=== PATIENT | male | born 1985 | race American Indian/Alaskan Native ===

== ENCOUNTER 2018-12-14 00:55 | Inpatient (IN) | payer OTHER ==
[2018-12-14] MEDS ORDERED: NORMODYNE IV ONE (01:30)
--- NOTE | 2018-12-14 01:30 | Cat Scan Report ---
PROCEDURE: CT HEAD/BRAIN WO CON TECHNIQUE: Computerized tomography of the head was performed without contrast material. CT DOSE LENGTH PRODUCT: 920.5 mGycm HISTORY: Neuro deficits <6hrs or sx present upon awakening. COMPARISONS: None . FINDINGS: Skull and scalp: Normal . Paranasal sinuses: Normal . Ventricles and subarachnoid spaces: Normal . Cerebrum: No evidence of hemorrhage, large vessel territory acute infarction or mass . Cerebellum and brainstem: No evidence of hemorrhage, acute infarction or mass . Vasculature: Unremarkable. Other: None . IMPRESSION: No acute intracranial process identified. Specifically there is no acute intracranial hemorrhage or d efinitive early findings of ischemia. COMMENT: Consider MRI for further evaluation given reported neurological deficits. This document is electronically signed by Julio C Faustin DO., Dec 14 2018 01:28:04 AM ET
[2018-12-14] MEDS ORDERED: ACTIVASE ONE (01:32)
--- NOTE | 2018-12-14 01:37 | Emergency Department Report ---
HPI - General Chief Complaint: Neuro Symptoms/Deficit Time Seen by Provider: 12/14/18 01:31 - HPI HPI: Room 2 The patient is a 31-year-old male presenting with a chief complaint of chest pain. The patient states approximately one hour prior to arrival he developed some sore chest pain radiating to his right upper extremity. The patient states his friend who is an EMT checked his blood pressure and noticed it was high and recommended he come to the ED. Patient describes the chest pain as a "pain" and states that is intermittent. The patient states that his shortness of breath and diaphoresis associated with chest pain. Patient denies nausea or vomiting. The patient was noted to have a right-sided facial droop in the ED as well as some difficulty raising his left lower extremity. The patient states he did not recognize this until he was in the emergency department Location: [See above] Duration: [See above] Quality: [See above] Severity: 12/29 Modifying factors: [see above] Context: [see above] Mode of transportation: [not driving] ED Past Medical Hx - Past Medical History Hx Headaches / Migraines: Yes Additional medical history: hypercholesterolemia - Surgical History Past Surgical History?: No - Family History Family history: no significant - Social History Smoking Status: Current Every Day Smoker (cigars) Substance Use Type: None (denies illicit drug use), Alcohol (occasional) - Medications Home Medications: Home Medications Medication Instructions Recorded Confirmed Last Taken Type Acetaminophen/Codeine 1 tab PO Q6H PRN #15 tab 04/30/14 05/04/14 05/02/14 Rx [Acetaminophen-Codeine #3 TAB] Sulfamethoxazole/Trimethoprim 1 each PO BID #14 tablet 04/30/14 05/04/14 05/04/14 Rx [Bactrim Ds] ED Review of Systems ROS: Stated complaint: CHEST PAIN Other details as noted in HPI Constitutional: diaphoresis Eyes: denies: eye pain ENT: denies: throat pain Respiratory: shortness of breath Cardiovascular: chest pain Endocrine: no symptoms reported Gastrointestinal: denies: abdominal pain, nausea, vomiting Genitourinary: denies: dysuria Musculoskeletal: denies: back pain Neurological: headache, weakness Physical Exam - Physical Exam Vital Signs: Vital Signs 12/14/18 01:04 Temperature 98.4 F Pulse Rate 94 H Respiratory 18 Rate Blood Pressure 159/108 O2 Sat by Pulse 100 Oximetry Physical Exam: GENERAL: The patient is well-developed well-nourished male lying on stretcher appearing to be in mild discomfort. [] HEENT: Normocephalic. Atraumatic. Extraocular motions are intact. Patient has moist mucous membranes. NECK: Supple. No meningitic signs are noted. Trachea midline CHEST/LUNGS: Clear to auscultation. There is no respiratory distress noted. HEART/CARDIOVASCULAR: Regular. There is no tachycardia. There is no gallop rub or murmur. ABDOMEN: Abdomen is soft, nontender. Patient has normal bowel sounds. There is no abdominal distention. SKIN: There is no rash. There is no edema. There is no diaphoresis. NEURO: The patient is awake, alert, and oriented. The patient is cooperative. The patient has no focal neurologic deficits. The patient has normal speech. Cranial nerves II through XII grossly intact, no drift MUSCULOSKELETAL: There is no evidence of acute injury. ED Course Vital Signs 12/14/18 01:04 Temperature 98.4 F Pulse Rate 94 H Respiratory 18 Rate Blood Pressure 159/108 O2 Sat by Pulse 100 Oximetry ED Medical Decision Making - Lab Data Result diagrams: 12/14/18 01:24 12/14/18 01:24 Laboratory Tests 12/14/18 12/14/18 12/14/18 01:13 01:24 01:24 WBC 5.2 RBC 5.57 H Hgb 17.1 H Hct 50.4 H MCV 90 MCH 31 MCHC 34 RDW 13.8 Plt Count 149 Lymph % (Auto) 32.1 [place] % (Auto) 11.1 H Eos % (Auto) 1.1 Baso % (Auto) 0.5 Lymph # 1.7 [place]ley # 0.6 Eos # 0.1 Baso # 0.0 Seg Neutrophils % 55.2 Seg Neutrophils # 2.9 PT 13.5 INR 0.97 APTT 26.1 Thrombin Time 15.2 Sodium Potassium Chloride Carbon Dioxide Anion Gap BUN Creatinine Estimated GFR BUN/Creatinine Ratio Glucose POC Glucose 87 Calcium Troponin T 12/14/18 01:24 WBC RBC Hgb Hct MCV MCH MCHC RDW Plt Count Lymph % (Auto) [place] % (Auto) Eos % (Auto) Baso % (Auto) Lymph # [place] # Eos # Baso # Seg Neutrophils % Seg Neutrophils # PT INR APTT Thrombin Time Sodium 138 Potassium 3.7 Chloride 100.1 Carbon Dioxide 24 Anion Gap 18 BUN 9 Creatinine 1.1 Estimated GFR > 60 BUN/Creatinine Ratio 8 Glucose 102 H POC Glucose Calcium 9.4 Troponin T < 0.010 - EKG Data -: EKG Interpreted by Me EKG shows normal: sinus rhythm Rate: normal - EKG Data When compared to previous EKG there are: previous EKG unavailable Interpretation: nonspecific ST-T wave gavino (T-wave inversion in lead 3) - Radiology Data Radiology results: report reviewed (CT head, CT chest, CT abdomen and pelvis), image reviewed (CT head, CT chest, CT abdomen and pelvis) [facility] [address] [place] [address] Cat Scan Report Signed with Addenda Patient: MICHELLE CHAHAL MR#: [id number] : 1985 Acct:[id number] Age/Sex: 33 / M ADM Date: 12/14/18 Loc: ED Attending Dr: Ordering Physician: PADMAJA ZAMBRANO MD Date of Service: 12/14/18 Procedure(s): CT head/brain wo con Accession Number(s): [id number] cc: PADMAJA ZAMBRANO MD ADDENDUM ADDENDUM: Impression relayed to Dr. Zambrano at 0130 hours on 12/14/2018. This document is electronically signed by Lori Faustin DO., Dec 14 2018 01:36:25 AM ET Addendum Transcribed By: DAGMAR Addendum Dictated By: LORI FAUSTIN DO Addendum Electronically Authenticated By: LORI FAUSTIN DO Addendum Signed Date/Time: 12/14/18137 DD/ TD/TT: 12/14/18 PROCEDURE: CT HEAD/BRAIN WO CON TECHNIQUE: Computerized tomography of the head was performed without contrast material. CT DOSE LENGTH PRODUCT: 920.5 mGycm HISTORY: Neuro deficits <6hrs or sx present upon awakening. COMPARISONS: None . FINDINGS: Skull and scalp: Normal . Paranasal sinuses: Normal . Ventricles and subarachnoid spaces: Normal . Cerebrum: No evidence of hemorrhage, large vessel territory acute infarction or mass . Cerebellum and brainstem: No evidence of hemorrhage, acute infarction or mass . Vasculature: Unremarkable. Other: None . IMPRESSION: No acute intracranial process identified. Specifically there is no acute intracranial hemorrhage or definitive early findings of ischemia. COMMENT: Consider MRI for further evaluation given reported neurological deficits. This document is electronically signed by Lori Faustin DO., Dec 14 2018 01:28:04 AM ET Transcribed By: DT Dictated By: LORI FAUSTIN DO Electronically Authenticated By: LORI FAUSTIN DO Signed Date/Time: 12/14/180 DD/ 7 TD/TT: 12/14/[address] [place] [address] Cat Scan Report Signed Patient: MICHELLE CHAHAL MR#: [id number] : 1985 Acct:[id number] Age/Sex: 33 / M ADM Date: 12/14/18 Loc: ED Attending Dr: Ordering Physician: PADMAJA ZAMBRANO MD Date of Service: 12/14/18 Procedure(s): CT angio chest Accession Number(s): [id number] cc: PADMAJA ZAMBRANO MD PROCEDURE: CT ANGIO CHEST TECHNIQUE: Computerized tomographic angiography of the chest was performed after the IV injection of iodinated nonionic contrast including image processing. The image data was postprocessed using 2-dimensional multiplanar reformatted (MPR) and 3-dimensional (MIP and/or volume rendered) techniques. Automated exposure control, adjustment of mA and/or kV according to patient size, or iterative reconstruction dose optimization techniques were utilized. CT DOSE LENGTH PRODUCT: mGycm HISTORY: chest pain, left lower extremity weakness COMPARISONS: None . FINDINGS: Heart and pericardium: Normal. Thoracic aorta: Normal. Pulmonary vasculature: Normal. Lymph nodes: No enlarged thoracic lymph nodes. Lungs: Normal. Pleural space: No effusion, thickening, or pneumothorax. Musculoskeletal structures: No significant abnormality. Upper abdominal structures: No significant abnormality. IMPRESSION: Normal Examination . No evidence of pulmonary embolus or aortic dissection. This document is electronically signed by Abdifatah Bhatt MD., Dec 14 2018 02:37:32 AM ET Transcribed By: RB Dictated By: ABDIFATAH BHATT MD Electronically Authenticated By: ABDIFATAH BHATT MD Signed Date/Time: 12/14/180 DD/ 1 TD/TT: 12/14/[address] [address] Cat Scan Report Signed Patient: MICHELLE CHAHAL MR#: [id number] : 1985 Acct:[id number] Age/Sex: 33 / M ADM Date: 12/14/18 Loc: ED Attending Dr: Ordering Physician: PADMAJA ZAMBRANO MD Date of Service: 12/14/18 Procedure(s): CT angio abdomen pelvis Accession Number(s): [id number] cc: PADMAJA ZAMBRANO MD PROCEDURE: CT ANGIO ABDOMEN PELVIS TECHNIQUE: Computerized axial tomographic angiography of the abdomen and pelvis was performed after the IV injection of iodinated nonionic contrast. The image data was postprocessed using 2- dimensional multiplanar reformatted (MPR) and 3-dimensional (MIP and/or volume rendered) techniques. HISTORY: chest pain, left lower extremity weakness COMPARISONS: None . FINDINGS: Abdominal aorta: Normal . Celiac artery: Normal . Superior mesenteric artery: Normal . Left renal artery: Normal . Right renal artery: Normal . Inferior mesenteric artery: Normal . Common iliacs: Normal . External iliacs: Normal . Internal iliacs: Normal . Hypervascular masses: None . Abdominal and pelvic viscera: Normal . Other: None . IMPRESSION: Normal Examination . This document is electronically signed by Maya Mccauley DO., Dec 14 2018 02:47:12 AM ET Transcribed By: [facility] Dictated By: MAYA MCCAULEY MD Electronically Authenticated By: MAYA MCCAULEY MD Signed Date/Time: 12/14/18 0249 DD/ 3 TD/TT: 12/14/18233 - Differential Diagnosis ACS, pericarditis, aortic dissection, CVA Critical care attestation.: If time is entered above; I have spent that time in minutes in the direct care of this critically ill patient, excluding procedure time. ED Disposition Clinical Impression: Chest pain, Weakness on right side of face, Transient neurologic deficit Disposition: OP ADMIT IP TO THIS HOSP Is pt being admited?: Yes Does the pt Need Aspirin: Yes Condition: Fair Instructions: Chest Pain (ED) Referrals: [facility] MD LISSETTE [Primary Care Provider] - 3-5 Days Time of Disposition: 03:00 ( Hospitalist paged (Dr Katie Ventura))
[2018-12-14 01:42] LABS: Basophils % (Auto) 0.5 % (0.0-1.8); Eosinophils # (Auto) 0.1 K/mm3 (0.0-0.4); Eosinophils % (Auto) 1.1 % (0.0-4.3); Hematocrit 50.4 % (35.5-45.6); Hemoglobin 17.1 gm/dl (11.8-15.2); Lymphocytes # (Auto) 1.7 K/mm3 (1.2-5.4); Lymphocytes % (Auto) 32.1 % (13.4-35.0); Mean Corpuscular HGB Conc 34 % (32-34); Mean Corpuscular Volume 90 fl (84-94); Monocytes # (Auto) 0.6 K/mm3 (0.0-0.8); Monocytes % (Auto) 11.1 % (0.0-7.3); Red Blood Count 5.57 M/mm3 (3.65-5.03); Red Cell Distribution Width 13.8 % (13.2-15.2)
[2018-12-14 01:43] LABS: Platelet Count 149 K/mm3 (140-440)
[2018-12-14] MEDS ORDERED: ASPIRIN PO ONE (01:44)
--- NOTE | 2018-12-14 01:45 | Emergency Department Report ---
ED Neuro Deficit HPI - General Chief Complaint: Neuro Symptoms/Deficit Stated Complaint: CHEST PAIN Time Seen by Provider: 12/14/18 01:31 Source: patient Mode of arrival: Ambulatory Limitations: No Limitations - History of Present Illness Initial Comments: [facility] Tele[facility]urology Consult Services Impression: Stroke - NIHSS is 1, for right facial droop Not a tpa candidate due to: minor signs CTA CHEST abdomen and pelvis completed Pt agrees with no tpa, because of risk at this time. Differential Diagnosis: 1. Cardioembolic stroke 2. Small vessel disease/lacune 3. Thromboembolic, [id number] mechanism 4. Hypercoagulable state-related infarct 5. Transient ischemic attack 6. Thrombotic mechanism, large artery disease Comments: [facility] contacted: 1:15 am [facility] at bedside: 1:20 am NIHSS assessment time: same Recommendations: inpatient neurology consultation Inpatient stroke evaluation as per Neurology/ Internal Medicine Discussed with ED MD CC History of Present Illness Patient is a 33 year old no prior medical history other than HLD, takes activated charcoal, started to feel facial droop, and severe chest pain. SA was called because facial droop was noticed. Family states that he was last normal at 12:15 am. Diagnostic: CT head is negative. Exam: NIHSS score: 1 Pt ambulates without a problem. 1A: Level of Consciousness - Alert; keenly responsive 0 1B: Ask Month and Age - Both Questions Right 0 1C: 'Blink Eyes' & 'Squeeze Hands' - Performs Both Tasks 0 2: Test Horizontal Extraocular Movements - Normal 0 3: Test Visual Beltran - No Visual Loss 0 4: Test Facial Palsy - Minor paralysis (flat nasolabial fold, smile asymetry) +1 5A: Test Left Arm Motor Drift - No Drift for 10 Seconds 0 5B: Test Right Arm Motor Drift - No Drift for 10 Seconds 0 6A: Test Left Leg Motor Drift - No Drift for 5 Seconds 0 6B: Test Right Leg Motor Drift - No Drift for 5 Seconds 0 7: Test Limb Ataxia - No Ataxia 0 9: Test Language/Aphasia - Normal; No aphasia 0 10: Test Dysarthria - Normal 0 11: Test Extinction/Inattention - No abnormality 0 Medical Decision Making: - Extensive number of diagnosis or management options are considered above. - Extensive amount of complex data reviewed. - High risk of complication and/or morbidity or mortality are associated with differential diagnostic considerations above. - There may be Uncertain outcome and increased probability of prolonged function al impairment or high probability of severe prolonged functional impairment associated with some of these differential diagnosis. Medical Data Reviewed: 1.Data reviewed include clinical labs, radiology, Medical Tests; 2.Tests results discussed w/performing or interpreting physician; 3.Obtaining/reviewing old medical records; 4.Obtaining case history from another source; 5.Independent review of image, tracing or specimen. Patient was informed the Neurology Consult would happen via telehealth (remote video) and consented to receiving care in this manner. - Related Data Home Medications: Previous Rx's Medication Instructions Recorded Last Taken Type Acetaminophen/Codeine 1 tab PO Q6H PRN #15 tab 04/30/14 05/02/14 Rx [Acetaminophen-Codeine #3 TAB] Sulfamethoxazole/Trimethoprim 1 each PO BID #14 tablet 04/30/14 05/04/14 Rx [Bactrim Ds] Allergies/Adverse Reactions: Allergies Allergy/AdvReac Type Severity Reaction Status Date / Time No Known Allergies Allergy Verified 05/04/14 21:49 ED Review of Systems ROS: Stated complaint: CHEST PAIN Other details as noted in HPI ED Past Medical Hx - Past Medical History Hx Headaches / Migraines: Yes Additional medical history: Shingles - Social History Smoking Status: Current Every Day Smoker Substance Use Type: Alcohol - Medications Home Medications: Home Medications Medication Instructions Recorded Confirmed Last Taken Type Acetaminophen/Codeine 1 tab PO Q6H PRN #15 tab 04/30/14 05/04/14 05/02/14 Rx [Acetaminophen-Codeine #3 TAB] Sulfamethoxazole/Trimethoprim 1 each PO BID #14 tablet 04/30/14 05/04/14 05/04/14 Rx [Bactrim Ds] ED Neuro Physical Exam - General Limitations: No Limitations ED Course Vital Signs 12/14/18 12/14/18 12/14/18 01:04 01:35 01:38 Temperature 98.4 F Pulse Rate 94 H 86 76 Respiratory 18 10 L 13 Rate Blood Pressure 159/108 Blood Pressure 158/98 [Left] O2 Sat by Pulse 100 98 98 Oximetry - Lab Data Result diagrams: 12/14/18 01:24 Lab Results 12/14/18 12/14/18 Range/Units 01:13 01:24 WBC 5.2 (4.5-11.0) K/mm3 RBC 5.57 H (3.65-5.03) M/mm3 Hgb 17.1 H (11.8-15.2) gm/dl Hct 50.4 H (35.5-45.6) % MCV 90 (84-94) fl MCH 31 (28-32) pg MCHC 34 (32-34) % RDW 13.8 (13.2-15.2) % Plt Count 149 (140-440) K/mm3 Lymph % (Auto) 32.1 (13.4-35.0) % [place] % (Auto) 11.1 H (0.0-7.3) % Eos % (Auto) 1.1 (0.0-4.3) % Baso % (Auto) 0.5 (0.0-1.8) % Lymph # 1.7 (1.2-5.4) K/mm3 [place] # 0.6 (0.0-0.8) K/mm3 Eos # 0.1 (0.0-0.4) K/mm3 Baso # 0.0 (0.0-0.1) K/mm3 Seg Neutrophils % 55.2 (40.0-70.0) % Seg Neutrophils # 2.9 (1.8-7.7) K/mm3 POC Glucose 87 (70-105) Critical care attestation.: If time is entered above; I have spent that time in minutes in the direct care of this critically ill patient, excluding procedure time. ED Disposition Condition: Stable Referrals: JORGE L URIOSTEGUI MD [Primary Care Provider] - 3-5 Days
[2018-12-14 01:52] LABS: INR 0.97 (0.87-1.13)
[2018-12-14 01:53] LABS: Partial Thromboplastin Time 26.1 Sec. (24.2-36.6); Thrombin Time 15.2 Sec. (15.1-19.6)
[2018-12-14 01:56] LABS: BUN/Creatinine Ratio 8; Blood Urea Nitrogen 9 mg/dL (9-20); Calcium 9.4 mg/dL (8.4-10.2); Hemolysis Index 18
[2018-12-14] MEDS ORDERED: ZOFRAN IV ONE (01:56)
[2018-12-14] MEDS ORDERED: SUBLIMAZE IV ONE (01:56)
[2018-12-14] MEDS ORDERED: AMMONIA INHALANT IH ONE (02:26)
--- NOTE | 2018-12-14 02:40 | Cat Scan Report ---
PROCEDURE: CT ANGIO CHEST TECHNIQUE: Computerized tomographic angiography of the chest was performed after the IV injection of iodinated nonionic contrast including image processing. The image data was postprocessed using 2-di mensional multiplanar reformatted (MPR) and 3-dimensional (MIP and/or volume rendered) techniques. Au tomated exposure control, adjustment of mA and/or kV according to patient size, or iterative reconstr uction dose optimization techniques were utilized. CT DOSE LENGTH PRODUCT: mGycm HISTORY: chest pain, left lower extremity weakness COMPARISONS: None . FINDINGS: Heart and pericardium: Normal. Thoracic aorta: Normal. Pulmonary vasculature: Normal. Lymph nodes: No enlarged thoracic lymph nodes. Lungs: Normal. Pleural space: No effusion, thickening, or pneumothorax. Musculoskeletal structures: No significant abnormality. Upper abdominal structures: No significant abnormality. IMPRESSION: Normal Examination . No evidence of pulmonary embolus or aortic dissection. This document is electronically signed by Miguel Angel Bhatt MD., Dec 14 2018 02:37:32 AM ET
--- NOTE | 2018-12-14 02:49 | Cat Scan Report ---
PROCEDURE: CT ANGIO ABDOMEN PELVIS TECHNIQUE: Computerized axial tomographic angiography of the abdomen and pelvis was performed after the IV injection of iodinated nonionic contrast. The image data was postprocessed using 2-dimensional multiplanar reformatted (MPR) and 3-dimensional (MIP and/or volume rendered) techniques. HISTORY: chest pain, left lower extremity weakness COMPARISONS: None . FINDINGS: Abdominal aorta: Normal . Celiac artery: Normal . Superior mesenteric artery: Normal . Left renal artery: Normal . Right renal artery: Normal . Inferior mesenteric artery: Normal . Common iliacs: Normal . External iliacs: Normal . Internal iliacs: Normal . Hypervascular masses: None . Abdominal and pelvic viscera: Normal . Other: None . IMPRESSION: Normal Examination . This document is electronically signed by Maya Mccauley DO., Dec 14 2018 02:47:12 AM ET
[2018-12-14] MEDS ORDERED: ZOFRAN IV PRN (03:21)
[2018-12-14] MEDS ORDERED: MILK OF MAGNESIA PO PRN (03:21)
[2018-12-14] MEDS ORDERED: REGLAN IV PRN (03:21)
[2018-12-14] MEDS ORDERED: DULCOLAX PR PRN (03:21)
[2018-12-14] MEDS ORDERED: TYLENOL PO PRN (03:21)
[2018-12-14] MEDS ORDERED: SODIUM CHLORIDE FLUSH SYRINGE 10 ML IV PRN (03:21)
[2018-12-14] MEDS ORDERED: PHENERGAN PR PRN (03:21)
[2018-12-14] MEDS ORDERED: APRESOLINE IV PRN (03:27)
--- NOTE | 2018-12-14 03:37 | History and Physical Report ---
History of Present Illness Date of examination: 12/14/18 History of present illness: 33 year old man with history of hyperlipidemia comes to the Emergency room with complaints of chest pain which is in the anterior chest which she describes as a dull pain, constant, intensity 6/10, radiating to right shoulder, cannot id entify and has been or relieving factors. He had an episode 2 weeks ago that lasted for 10 minutes. Denies nausea vomiting, shortness breath, diaphoresis or palpitation. His friend checked his blood pressure at home, and was elevated, he came to the emergency room for further evaluation. While he was in the emergency room he was noted to have left-sided weakness and left facial droop, the symptoms resolved on his way to CAT scan Review of systems Constitutional: no weight loss, chills, fever Ears, eyes, nose, mouth and throat: no nasal congestion, no nasal discharge, no sinus pressure, no vision change, no red eye. Neck: No neck pain or rigidity. Cardiovascular: no palpitations Respiratory: no cough, shortness of breath Gastrointestinal: no hematochezia, abdominal pain Genitourinary : no frequency , no hematuria Musculoskeletal: no joint swelling or muscle ache Integumentary: no rash, no pruritis Neurological: no parathesias Endocrine: no cold or heat intolerance, no polyuria or polydipsia Hematologic/Lymphatic: no easy bruising, no easy bleeding, no gland swelling Allergic/Immunologic: no urticaria, no angioedema. PAST MEDICAL HISTORY:hyperlidemia PAST SURGICAL HISTORY: None SOCIAL HISTORY: Drink 2 beers/dayl, no drugs, smoke 1 cigar a day FAMILY HISTORY: Hypertension Medications and Allergies Allergies Allergy/AdvReac Type Severity Reaction Status Date / Time No Known Allergies Allergy Verified 05/04/14 21:49 Active Meds: Active Medications Acetaminophen (Tylenol) 650 mg PO Q4H PRN PRN Reason: Pain, Mild (1-3) Aspirin (Aspirin) 325 mg PO QDAY GLENIS Bisacodyl (Dulcolax) 10 mg AR QDAY PRN PRN Reason: Constipation Enoxaparin Sodium (Lovenox) 30 mg SUB-Q QDAY GLENIS Hydralazine HCl (Apresoline) 5 mg IV Q6H PRN PRN Reason: Hypertension Magnesium Hydroxide (Milk Of Magnesia) 30 ml PO Q4H PRN PRN Reason: Constipation Metoclopramide HCl (Reglan) 10 mg IV Q6H PRN PRN Reason: Nausea And Vomiting Ondansetron HCl (Zofran) 4 mg IV Q8H PRN PRN Reason: Nausea And Vomiting Pravastatin Sodium (Pravachol) 20 mg PO QHS GLENIS Promethazine HCl (Phenergan) 25 mg AR Q6H PRN PRN Reason: Nausea And Vomiting Sodium Chloride (Sodium Chloride Flush Syringe 10 Ml) 10 ml INJ PRN PRN PRN Reason: LINE FLUSH Exam - Physical Exam Narrative exam: General Apperance: The patient lying in bed, breathing comfortable HEENT: Normocephalic, atraumatic. Pupils equally round and reactive to light, EOMI, no sclericterus or JVD or thyromegaly or nodule. , no carotid bruit, mucous membranes moist, no exudate or erythema Heart: S1-S2, regular is rhythm Lungs: Clear to auscultation bilaterally, breathing comfortable Abdomen: Positive bowel sounds, soft, nontender, nondistended, no organomegaly Extremities: No edema cyanosis clubbing Skin: no rash, nodule, warm and dry Neuro: cranial nerves 2-12 intact, speech is fluent, motor/sensory intact - Constitutional Vitals: Temp Pulse Resp BP Pulse Ox 98.4 F 79 10 L 125/86 98 12/14/18 01:04 12/14/18 03:15 12/14/18 03:15 12/14/18 03:15 12/14/18 03:15 Results - Labs CBC & Chem 7: 12/14/18 01:24 12/14/18 01:24 Labs: Abnormal lab results 12/14/18 12/14/18 Range/Units 01:24 01:24 RBC 5.57 H (3.65-5.03) M/mm3 Hgb 17.1 H (11.8-15.2) gm/dl Hct 50.4 H (35.5-45.6) % [place] % (Auto) 11.1 H (0.0-7.3) % Glucose 102 H (75-100) mg/dL - Imaging and Cardiology CT scan - abdomen: report reviewed CT scan - chest: report reviewed CT scan - pelvis: report reviewed Assessment and Plan Assessment TIA Chest pain Elevated blood pressure Hyperlipdemia Plan Admit to medicine Obtain MRI of the head and neck, echo Do swallow screen, neuro checks Start aspirin, statin IV hydralazine for blood pressure control Check cardiac enzymes, urine toxicology Consult neurology,cardiology Stress test not available until saturday DVT prophalaxis
[2018-12-14 03:48] LABS: Amphetamine Screen,Urine PRESUMPTIVE NEGATIVE; Benzodiazepines Screen,Urine PRESUMPTIVE NEGATIVE; Cannabinoid Screen,Urine PRESUMPTIVE NEGATIVE; Cocaine Screen,Urine PRESUMPTIVE NEGATIVE; Methadone Screen,Urine PRESUMPTIVE NEGATIVE; Opiate Screen,Urine PRESUMPTIVE NEGATIVE
[2018-12-14 04:24] LABS: Creatine Kinase MB < 1.0 ng/mL (0.0-4.0)
--- NOTE | 2018-12-14 08:04 | Progress Note ---
Assessment and Plan Assessment and plan: Patient is a 33 yo man with a history of hyperlipidemia and tobacco dependency who presents to [facility] with right sided chest pains, left sided weakness, right facial droop. NIH stroke scale was 1, teleneurology evaluate and determined no tPA because of risk. UDS negative * CTA chest IMPRESSION: Normal Examination . No evidence of pulmonary embolus or aortic dissection * CTA abd/pelvis IMPRESSION: Normal Examination . * CT head without contrast IMPRESSION: No acute intracranial process identified. Specifically there is no acute intracranial hemorrhage or definitive early findings of ischemia. COMMENT: Consider MRI for further evaluation given reported neurological deficits. TIA suspected: echo and mri brain ordered but cancelled, Dr. 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 Follow-up on current diagnosis of chest pains, and left sided weakness. No overnight events reported to me. Patient denies any chest pain, shortness breath, nausea/vomiting or severe headaches. Imaging, nursing note, chart, labs and old chart reviewed. Discussed with patient. Hospitalist Physical - Physical exam Narrative exam: Gen: WDWN, NAD, Awake, Alert, Orientated x 3 HEENT: NCAT, EOMI, PERRL, OP Clear Neck: supple, no adenopathy, no thyromegaly, no JVD CVS/Heart: RRR, normal S1S2, pulses present bilaterally Chest/Lungs: CTA B, Symmetrical chest expansion, good air entry bilaterally, reproducible chest wall tenderness on the right upper chest area GI/Abdomen: soft, NTND, good bowel sounds, no guarding or rebound /Bladder: no suprapubic tenderness, no CVA or paraspinal tenderness Extermity/Skin: no c/c/e, no obvious rash MSK: FROM x 4 Neuro: CN 2-12 grossly intact, no focal deficits Psych: calm - Constitutional Vitals: Temp Pulse Resp BP Pulse Ox 97.4 F L 69 20 133/86 98 12/14/18 06:05 12/14/18 06:40 12/14/18 06:05 12/14/18 06:05 12/14/18 06:05 Results - Labs CBC & Chem 7: 12/14/18 01:24 12/14/18 01:24 Labs: Laboratory Last Values WBC 5.2 K/mm3 (4.5-11.0) 12/14/18 01:24 RBC 5.57 M/mm3 (3.65-5.03) H 12/14/18 01:24 Hgb 17.1 gm/dl (11.8-15.2) H 12/14/18 01:24 Hct 50.4 % (35.5-45.6) H 12/14/18 01:24 MCV 90 fl (84-94) 12/14/18 01:24 MCH 31 pg (28-32) 12/14/18 01:24 MCHC 34 % (32-34) 12/14/18 01:24 RDW 13.8 % (13.2-15.2) 12/14/18 01:24 Plt Count 149 K/mm3 (140-440) 12/14/18 01:24 Lymph % (Auto) 32.1 % (13.4-35.0) 12/14/18 01:24 [place] % (Auto) 11.1 % (0.0-7.3) H 12/14/18 01:24 Eos % (Auto) 1.1 % (0.0-4.3) 12/14/18 01:24 Baso % (Auto) 0.5 % (0.0-1.8) 12/14/18 01:24 Lymph # 1.7 K/mm3 (1.2-5.4) 12/14/18 01:24 [place] # 0.6 K/mm3 (0.0-0.8) 12/14/18 01:24 Eos # 0.1 K/mm3 (0.0-0.4) 12/14/18 01:24 Baso # 0.0 K/mm3 (0.0-0.1) 12/14/18 01:24 Seg Neutrophils % 55.2 % (40.0-70.0) 12/14/18 01:24 Seg Neutrophils # 2.9 K/mm3 (1.8-7.7) 12/14/18 01:24 PT 13.5 Sec. (12.2-14.9) 12/14/18 01:24 INR 0.97 (0.87-1.13) 12/14/18 01:24 APTT 26.1 Sec. (24.2-36.6) 12/14/18 01:24 15.2 Sec. (15.1-19.6) 12/14/18 01:24 Sodium 138 mmol/L (137-145) 12/14/18 01:24 Potassium 3.7 mmol/L (3.6-5.0) 12/14/18 01:24 Chloride 100.1 mmol/L (98-107) 12/14/18 01:24 Carbon Dioxide 24 mmol/L (22-30) 12/14/18 01:24 18 mmol/L 12/14/18 01:24 BUN 9 mg/dL (9-20) 12/14/18 01:24 1.1 mg/dL (0.8-1.5) 12/14/18 01:24 Estimated GFR > 60 ml/min 12/14/18 01:24 8 % 12/14/18 01:24 Glucose 102 mg/dL (75-100) H 12/14/18 01:24 POC Glucose 87 (70-105) 12/14/18 01:13 Calcium 9.4 mg/dL (8.4-10.2) 12/14/18 01:24 96 units/L (55-170) 12/14/18 03:38 CK-MB (CK-2) < 1.0 ng/mL (0.0-4.0) 12/14/18 03:38 CK-MB (CK-2) Rel Index 1.0 (0-4) 12/14/18 03:38 < 0.010 ng/mL (0.00-0.029) 12/14/18 03:38 Presumptive negative 12/14/18 03:25 Presumptive negative 12/14/18 03:25 Ur Barbiturates Screen Presumptive negative 12/14/18 03:25 Ur Phencyclidine Scrn Presumptive negative 12/14/18 03:25 Ur Amphetamines Screen Presumptive negative 12/14/18 03:25 U Benzodiazepines Scrn Presumptive negative 12/14/18 03:25 Presumptive negative 12/14/18 03:25 U Marijuana (THC) Screen Presumptive negative 12/14/18 03:25 Disclamer 12/14/18 03:25 Active Medications - Current Medications Current Medications: Generic Name Dose Route Start Last Admin Trade Name Freq PRN Reason Stop Dose Admin Acetaminophen 650 mg 12/14/18 03:21 Tylenol PO Q4H PRN Pain, Mild (1-3) Aspirin 325 mg 12/14/18 10:00 Aspirin PO QDAY GLENIS Bisacodyl 10 mg 12/14/18 03:21 Dulcolax FL QDAY PRN Constipation Enoxaparin Sodium 40 mg 12/14/18 10:00 Lovenox SUB-Q QDAY@1000 [facility] Hydralazine HCl 5 mg 12/14/18 03:27 Apresoline IV Q6H PRN Hypertension Magnesium Hydroxide 30 ml 12/14/18 03:21 Milk Of Magnesia PO Q4H PRN Constipation Metoclopramide HCl 10 mg 12/14/18 03:21 Reglan IV Q6H PRN Nausea And Vomiting Ondansetron HCl 4 mg 12/14/18 03:21 Zofran IV Q8H PRN Nausea And Vomiting Pravastatin Sodium 20 mg 12/14/18 22:00 Pravachol PO QHS GLENIS Promethazine HCl 25 mg 12/14/18 03:21 Phenergan FL Q6H PRN Nausea And Vomiting Sodium Chloride 10 ml 12/14/18 03:21 Sodium Chloride Flush Syringe 10 Ml IV PRN PRN LINE FLUSH
[2018-12-14 08:07] VITALS: BP 121/77
[2018-12-14 08:31] LABS: Creatine Kinase MB < 1.0 ng/mL (0.0-4.0)
[2018-12-14] MEDS ORDERED: LOVENOX SUB-Q SCH ×2 (10:00)
[2018-12-14] MEDS ORDERED: ASPIRIN PO SCH (10:00)
--- NOTE | 2018-12-14 10:19 | Progress Note ---
Subjective Date of service: 12/14/18 Interval history: based on the hx from the ED the onset of the left leg weakness was at the time of chest pain the CT of the head is normal to my review sounds very much like TIA ECHO is central issue to r/o embolus Objective - Vital Sign Vital Signs - 12hr 12/14/18 12/14/18 12/14/18 01:04 01:35 01:38 Temperature 98.4 F Pulse Rate 94 H 86 76 Respiratory 18 10 L 13 Rate Blood Pressure 159/108 Blood Pressure 158/98 [Left] O2 Sat by Pulse 100 98 98 Oximetry 12/14/18 12/14/18 12/14/18 01:45 02:00 02:18 Temperature Pulse Rate 76 87 Respiratory 9 L 15 Rate Blood Pressure 155/97 151/107 151/107 Blood Pressure [Left] O2 Sat by Pulse 98 96 97 Oximetry 12/14/18 12/14/18 12/14/18 02:30 02:45 03:00 Temperature Pulse Rate 74 69 77 Respiratory 11 L 17 14 Rate Blood Pressure 136/95 133/80 133/80 Blood Pressure [Left] O2 Sat by Pulse 97 97 94 Oximetry 12/14/18 12/14/18 12/14/18 03:15 03:30 03:45 Temperature Pulse Rate 79 75 76 Respiratory 10 L 13 16 Rate Blood Pressure 125/86 125/86 135/84 Blood Pressure [Left] O2 Sat by Pulse 98 95 97 Oximetry 12/14/18 12/14/18 12/14/18 04:00 04:15 04:30 Temperature Pulse Rate 81 78 73 Respiratory 16 18 13 Rate Blood Pressure 128/82 122/75 119/71 Blood Pressure [Left] O2 Sat by Pulse 96 96 97 Oximetry 12/14/18 12/14/18 12/14/18 04:45 05:00 05:16 Temperature Pulse Rate 77 75 72 Respiratory 15 15 17 Rate Blood Pressure 121/71 116/72 114/62 Blood Pressure [Left] O2 Sat by Pulse 97 97 95 Oximetry 12/14/18 12/14/18 12/14/18 05:30 05:50 06:05 Temperature 97.4 F L Pulse Rate 77 67 65 Respiratory 12 9 L 20 Rate Blood Pressure 113/68 125/80 133/86 Blood Pressure [Left] O2 Sat by Pulse 97 97 98 Oximetry 05/12/14/18 12/14/18 06:40 08:04 08:28 Temperature 98.2 F Pulse Rate 69 64 Respiratory 16 Rate Blood Pressure 121/77 Blood Pressure [Left] O2 Sat by Pulse 99 100 Oximetry - Laboratory Findings CBC and BMP: 12/14/18 01:24 12/14/18 01:24 Abnormal Lab Findings: Abnormal Labs 12/14/18 12/14/18 01:24 01:24 RBC 5.57 H Hgb 17.1 H Hct 50.4 H [place] % (Auto) 11.1 H Glucose 102 H
--- NOTE | 2018-12-14 11:07 | Discharge Summary ---
Providers - Providers Date of Admission: 12/14/18 03:21 Date of discharge: 12/14/18 Attending physician: ASHLEY FOUNTAIN 12/14/18 03:21 Occupational Therapy Evaluate and Treat [CONS] Routine Comment: Reason For Exam: Neuro deficits Physical Therapy Evaluation and Treat [CONS] Routine Comment: Reason For Exam: Neuro deficits 12/14/18 03:29 Consult to Physician [CONS] Routine Comment: Consulting Provider: JACKIE LANE Physician Instructions: Reason For Exam: tia 12/14/18 03:30 Consult to Physician [CONS] Routine Comment: Consulting Provider: ALLEN DUDLEY Physician Instructions: Reason For Exam: cp [facility] Condition: Stable Hospital course: Patient is a 33 yo man with a history of hyperlipidemia and tobacco dependency who presents to [facility] with right sided chest pains, left sided weakness, right facial droop. NIH stroke scale was 1, teleneurology evaluate and determined no tPA because of risk. UDS negative. All symptoms resolved, he wants to go home today. * CTA chest IMPRESSION: Normal Examination . No evidence of pulmonary embolus or aortic dissection * CTA abd/pelvis IMPRESSION: Normal Examination . * CT head without contrast IMPRESSION: No acute intracranial process identified. Specifically there is no acute intracranial hemorrhage or definitive early findings of ischemia. COMMENT: Consider MRI for further evaluation given reported neurological deficits. TIA suspected: echo reviewed, mri brain ordered but cancelled b/c no deficits, Dr. 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 DVT prophylaxis sq lovenox Disposition: DC-01 TO HOME OR SELFCARE Time spent for discharge: 32 minutes Core Measure Documentation - Palliative Care Palliative Care/ Comfort Measures: Not Applicable - Core Measures Any of the following diagnoses?: none - VTE Discharge Requirements Deep Vein Thrombosis/Pulmonary Embolism Present on Admission: No Has pt received <5 days of overlap therapy or INR<2.0: No Anticoagulant overlap therapy prescribed at discharge: No Contraindication No Overlap Therapy order at DC: Not Indicated Exam - Physical Exam Narrative exam: Gen: WDWN, NAD, Awake, Alert, Orientated x 3 HEENT: NCAT, EOMI, PERRL, OP Clear Neck: supple, no adenopathy, no thyromegaly, no JVD CVS/Heart: RRR, normal S1S2, pulses present bilaterally Chest/Lungs: CTA B, Symmetrical chest expansion, good air entry bilaterally, reproducible chest wall tenderness on the right upper chest area GI/Abdomen: soft, NTND, good bowel sounds, no guarding or rebound /Bladder: no suprapubic tenderness, no CVA or paraspinal tenderness Extermity/Skin: no c/c/e, no obvious rash MSK: FROM x 4 Neuro: CN 2-12 grossly intact, no focal deficits Psych: calm - Constitutional Vitals: Temp Pulse Resp BP Pulse Ox 98.2 F 64 16 121/77 100 12/14/18 08:04 12/14/18 08:04 12/14/18 08:04 12/14/18 08:04 12/14/18 08:28 Plan Activity: other (no strenous activity unless cleared by PCP) Diet: low salt Special Instructions: record daily BP diary Follow up with: JORGE L URIOSTEGUI MD [Primary Care Provider] - 3-5 Days
--- NOTE | 2018-12-14 11:34 | Consultation ---
History of Present Illness Consult date: 12/14/18 Requesting physician: ASHLEY FOUNTAIN Consult reason: chest pain History of present illness: 33-year-old gentleman came in because of elevated blood pressure and have right- sided pain and some numbness CT of the chest was negative CT of the head was negative patient has no chest pain now is more pleuritic in nature is a smoker had no nausea no vomiting no family history of premature CAD appears to be reproducible advised to stop smoking denies any fever or chills or syncope Past History Past Medical History: No medical history Past Surgical History: No surgical history Social history: smoking Family history: no significant family history Medications and Allergies Allergies Allergy/AdvReac Type Severity Reaction Status Date / Time No Known Allergies Allergy Verified 05/04/14 21:49 Active Meds: Active Medications Acetaminophen (Tylenol) 650 mg PO Q4H PRN PRN Reason: Pain, Mild (1-3) Last Admin: 12/14/18 10:38 Dose: 650 mg Documented by: Aspirin (Aspirin) 325 mg PO QDAY [facility] Last Admin: 12/14/18 10:39 Dose: 325 mg Documented by: Bisacodyl (Dulcolax) 10 mg MT QDAY PRN PRN Reason: Constipation Enoxaparin Sodium (Lovenox) 40 mg SUB-Q QDAY@1000 [facility] Last Admin: 12/14/18 10:39 Dose: 40 mg Documented by: Hydralazine HCl (Apresoline) 5 mg IV Q6H PRN PRN Reason: Hypertension Magnesium Hydroxide (Milk Of Magnesia) 30 ml PO Q4H PRN PRN Reason: Constipation Metoclopramide HCl (Reglan) 10 mg IV Q6H PRN PRN Reason: Nausea And Vomiting Ondansetron HCl (Zofran) 4 mg IV Q8H PRN PRN Reason: Nausea And Vomiting Pravastatin Sodium (Pravachol) 20 mg PO QHS GLENIS Promethazine HCl (Phenergan) 25 mg MT Q6H PRN PRN Reason: Nausea And Vomiting Sodium Chloride (Sodium Chloride Flush Syringe 10 Ml) 10 ml IV PRN PRN PRN Reason: LINE FLUSH Review of Systems All systems: negative (as per hpi) Physical Examination Vital Signs Temp Pulse Resp BP Pulse Ox 98.4 F 94 H 18 159/108 100 12/14/18 01:04 12/14/18 01:04 12/14/18 01:04 12/14/18 01:04 12/14/18 01:04 General appearance: no acute distress, well-nourished HEENT: Positive: PERRL, Mucus Membranes Moist Neck: Positive: neck supple, trachea midline Cardiac: Positive: Reg Rate and Rhythm, S1/S2. Negative: Audible Murmur Lungs: Positive: clear to auscultation, Normal Breath Sounds Neuro: Positive: Grossly Intact Abdomen: Positive: Soft, Active Bowel Sounds. Negative: Tender, Distended Male genitourinary: Positive: normal Skin: Positive: Clear Incision: Cardiac Cath Site Musculoskeletal: No Pain, Normal Range of Motion Extremities: Present: normal. Absent: edema Results 12/14/18 01:24 12/14/18 01:24 Cardiac Enzymes 12/14/18 12/14/18 Range/Units 03:38 07:45 CK-MB (CK-2) < 1.0 < 1.0 (0.0-4.0) ng/mL Coagulation 12/14/18 Range/Units 01:24 PT 13.5 (12.2-14.9) Sec. INR 0.97 (0.87-1.13) APTT 26.1 (24.2-36.6) Sec. CBC 12/14/18 Range/Units 01:24 WBC 5.2 (4.5-11.0) K/mm3 RBC 5.57 H (3.65-5.03) M/mm3 Hgb 17.1 H (11.8-15.2) gm/dl Hct 50.4 H (35.5-45.6) % Plt Count 149 (140-440) K/mm3 Lymph # 1.7 (1.2-5.4) K/mm3 Holt # 0.6 (0.0-0.8) K/mm3 Eos # 0.1 (0.0-0.4) K/mm3 Baso # 0.0 (0.0-0.1) K/mm3 Comprehensive Metabolic Panel 12/14/18 Range/Units 01:24 Sodium 138 (137-145) mmol/L Potassium 3.7 (3.6-5.0) mmol/L Chloride 100.1 (98-107) mmol/L Carbon Dioxide 24 (22-30) mmol/L BUN 9 (9-20) mg/dL Creatinine 1.1 (0.8-1.5) mg/dL Glucose 102 H (75-100) mg/dL Calcium 9.4 (8.4-10.2) mg/dL - Imaging and Cardiology Echo: report reviewed (normal LV function no significant regurgitation negative bubble study) EKG interpretations - Telemetry EKG Rhythm: Sinus Rhythm (normal sinus rhythm nonspecific ST-T's) Assessment and Plan Chest pain possible costochondritis versus gastroenterology Elevated blood pressure Atypical numbness rec: Patient's blood pressure is better controlled on no medications advised for dietary discretion monitor blood pressure stop smoking in view of normal LV function atypical chest pain advised to follow-up with primary care doctor
[2018-12-14] MEDS ORDERED: PRAVACHOL PO SCH (22:00)
== END 2018-12-14 13:14 | disposition home or self-care (01) | DRG 206 ==
LOC: ED 00:55 → 4A 03:21
PROVIDERS: ADMIT Internal Medicine; ATTEND Internal Medicine
DX: M94.0 Chondrocostal junction syndrome [Tietze] (principal); G45.9 Transient cerebral ischemic attack, unspecified; F17.210 Nicotine dependence, cigarettes, uncomplicated; R29.701 NIHSS score 1; R03.0 Elevated blood-pressure reading, without diagnosis of hypertension; E78.5 Hyperlipidemia, unspecified; G43.909 Migraine, unspecified, not intractable, without status migrainosus; Z82.49 Family history of ischemic heart disease and other diseases of the circulatory system; Z71.6 Tobacco abuse counseling
CPT/HCPCS: 36415; 70450; 71275; 74174; 80048; 80307; 82550; 82553; 82962; 84484; 85025; 85610; 85670; 85730; 93005; 93010; 93306; G0378; J1650; J2405; J2997; J3010; Q9967

== ENCOUNTER 2019-01-21 13:17 | Emergency (ER) | payer OTHER ==
[2019-01-21 13:26] VITALS: BP 138/90
--- NOTE | 2019-01-21 13:48 | Emergency Department Report ---
Chief Complaint: Urogenital-Male Stated Complaint: DIFFICULTY URINATING/BURNING - HPI History of Present Illness: 33 y/o male wants a STD check. Denies any pain. - Exam Vital Signs: Vital Signs 01/21/19 13:24 Temperature 98.8 F Pulse Rate 71 Respiratory 12 Rate Blood Pressure 138/90 [Left] O2 Sat by Pulse 100 Oximetry Physical Exam: A&O times 3 NAD MSE screening note: Focused history and physical exam performed. Due to findings the following was ordered: ED Disposition for MSE Disposition: Z- MED SCREENING EXAM-LEFT Condition: Stable
== END 2019-01-21 13:50 | disposition left against medical advice (07) ==
LOC: ED 13:17
DX: R30.0 Dysuria (principal); Z53.21 Procedure and treatment not carried out due to patient leaving prior to being seen by health care provider

== ENCOUNTER 2021-02-26 07:09 | Emergency (ER) | payer OTHER ==
[2021-02-26 08:47] VITALS: BP 145/104
--- NOTE | 2021-02-26 10:33 | XRay Report ---
LUMBAR SPINE 3 VIEWS INDICATION / CLINICAL INFORMATION: back pain COMPARISON: None available. FINDINGS: BONES / JOINT(S): No acute fracture or subluxation. No significant arthritis. SOFT TISSUES: No significant abnormality. ADDITIONAL FINDINGS: None. Signer Name: Regis Crane MD Signed: 02/26/2021 10:28 AM Workstation Name: [id number]
--- NOTE | 2021-02-26 10:46 | Emergency Department Report ---
ED Back Pain/Injury HPI - General Chief Complaint: Back Pain/Injury Stated Complaint: BACK INJURY Time Seen by Provider: 02/26/21 09:43 Source: patient Limitations: No Limitations - History of Present Illness Initial Comments: This is a 35-year-old male nontoxic, well nourished in appearance, no acute signs of distress presents to the ED with c/o of acute lower back pain. Patient stated that while at work yesterday has been heavy lifting and developed this pain. Patient denies any radiation of pain. Patient denies any trauma. Denies any bladder or bowel instability. Patient denies any urinary symptoms. Denies any fever, chills, nausea, vomiting, headache, stiff neck, chest pain or shortness of breath. Patient denies any numbness or tingling. Denies any allergies. Denies significant past medical history. MD Complaint: back pain -: days(s) Place: work Radiation: none Severity: mild Severity scale (0 -10): 3 Quality: aching Consistency: intermittent Improves With: immobilization, sitting upright Worsens With: movement, walking Context: while lifting, turning/twisting Associated Symptoms: denies other symptoms. denies: confusion, chest pain, numbness, difficulty walking, cough, difficulty urinating, diaphoresis, incontinence, fever/chills, constipation, headaches, abdominal pain, loss of appetite, malaise, nausea/vomiting, rash, seizure, shortness of breath, syncope - Related Data Previous Rx's Medication Instructions Recorded Last Taken Type Cyclobenzaprine [Flexeril] 10 mg PO QHS PRN #10 tablet 02/26/21 Unknown Rx Naproxen 500 mg PO Q12H PRN #12 tablet 02/26/21 Unknown Rx Allergies Allergy/AdvReac Type Severity Reaction Status Date / Time No Known Allergies Allergy Verified 01/21/19 13:52 ED Review of Systems ROS: Stated complaint: BACK INJURY Other details as noted in HPI Comment: All other systems reviewed and negative Constitutional: denies: chills, fever Eyes: denies: eye pain, eye discharge, vision change ENT: denies: ear pain, throat pain Respiratory: denies: cough, shortness of breath, wheezing Cardiovascular: denies: chest pain, palpitations Endocrine: no symptoms reported Gastrointestinal: denies: abdominal pain, nausea, diarrhea Genitourinary: denies: urgency, dysuria Musculoskeletal: back pain. denies: joint swelling, arthralgia Skin: denies: rash, lesions Neurological: denies: headache, weakness, paresthesias Psychiatric: denies: anxiety, depression Hematological/Lymphatic: denies: easy bleeding, easy bruising ED Past Medical Hx - Past Medical History Previous Medical History?: Yes Hx Congestive Heart Failure: No Hx Diabetes: No Hx Headaches / Migraines: Yes (Migraine) Hx Asthma: No Hx COPD: No Additional medical history: hypercholesterolemia - Surgical History Past Surgical History?: No - Social History Smoking Status: Unknown if ever smoked - Medications Home Medications: Home Medications Medication Instructions Recorded Confirmed Last Taken Type Cyclobenzaprine [Flexeril] 10 mg PO QHS PRN #10 tablet 02/26/21 Unknown Rx Naproxen 500 mg PO Q12H PRN #12 tablet 02/26/21 Unknown Rx ED Physical Exam - General Limitations: No Limitations General appearance: alert, in no apparent distress - Head Head exam: Present: atraumatic, normocephalic - Eye Eye exam: Present: normal appearance - Neck Neck exam: Present: normal inspection, full ROM. Absent: lymphadenopathy - Respiratory Respiratory exam: Absent: respiratory distress - Cardiovascular Cardiovascular Exam: Present: regular rate - GI/Abdominal GI/Abdominal exam: Present: soft. Absent: distended, tenderness - Extremities Exam Extremities exam: Present: normal inspection, full ROM - Back Exam Back exam: Present: normal inspection, full ROM, paraspinal tenderness (Lumbar paraspinal). Absent: tenderness, CVA tenderness (R), CVA tenderness (L), muscle spasm, vertebral tenderness, rash noted - Expanded Back Exam Expanded Back exam: Absent: saddle anesthesia Back exam: Negative Straight Leg Raising: Right, Left - Neurological Exam Neurological exam: Present: alert, oriented X3, normal gait - Psychiatric Psychiatric exam: Present: normal affect, normal mood - Skin Skin exam: Present: warm, dry, intact, normal color. Absent: rash ED Course Vital Signs 02/26/21 08:46 Temperature 98 F Pulse Rate 66 Respiratory 16 Rate Blood Pressure 145/104 [Right] O2 Sat by Pulse 98 Oximetry - Reevaluation(s) Reevaluation #1: 02/26/21 10:44 Patient is speaking in full sentences with no signs of distress noted. ED Medical Decision Making - Radiology Data [facility] [address] [place] [address] XRay Report Signed Patient: MICHELLE CHAHAL MR#: [id number] : 1985 Acct:[id number] Age/Sex: 35 / M ADM Date: 02/26/21 Loc: ED Attending Dr: Ordering Physician: MARGIE AIKEN NP Date of Service: 02/26/21 Procedure(s): XR spine lumbosacral 2-3V Accession Number(s): [id number] cc: MARGIE AIKEN NP Fluoro Time In Minutes: LUMBAR SPINE 3 VIEWS INDICATION / CLINICAL INFORMATION: back pain COMPARISON: None available. FINDINGS: BONES / JOINT(S): No acute fracture or subluxation. No significant arthritis. SOFT TISSUES: No significant abnormality. ADDITIONAL FINDINGS: None. Signer Name: Regis Crane MD Signed: 02/26/2021 10:28 AM Workstation Name: [id number] Transcribed By: ES Dictated By: Regis Crane MD Electronically Authenticated By: Regis Crane MD Signed Date/Time: 02/26/21 1028 DD/ 1028 TD/TT: - Medical Decision Making This is a 35-year-old male that presents with low back strain. Patient is stable was examined by me. There is no spinal tenderness. There is no cauda equina syndrome during examination. No bladder or bowel instability. Patient is notified of the imaging results with no questions noted by the patient. Patient is discharged with muscle relaxant and Motrin. Patient was instructed not to operate any machinery while taking muscle relaxant as they cause her drowsiness. Patient was referred to Follow-up with a primary care doctor in 3-5 days or if symptoms worsen and continue return to emergency room as soon as possible. At time of discharge, the patient does not seem toxic or ill in appearance. No acute signs of distress noted. Patient agrees to discharge treatment plan of care. No further questions noted by the patient. This chart is dictated with using [employer] Critical care attestation.: If time is entered above; I have spent that time in minutes in the direct care of this critically ill patient, excluding procedure time. ED Disposition Clinical Impression: Low back strain Qualifiers: Encounter type: initial encounter Qualified Code(s): S39.012A - Strain of muscle, fascia and tendon of lower back, initial encounter Disposition: - TO HOME OR SELFCARE Is pt being admited?: No Does the pt Need Aspirin: No Condition: Stable Instructions: Lumbar Strain Additional Instructions: Follow-up with your primary care doctor in 3-5 days or if symptoms worsen such as bladder or bowel stability, chest pain, short of breath, numbness or tingling sensation in extremities, headache, dizziness, visual changes, nausea vomiting, or abdominal pain, return back to emergency room as was possible. Take ibuprofen and Flexeril as prescribed. Do not operate heavy machinery while taking Flexeril due to sedation No physical activity such as heavy lifting until cleared by orthopedic doctor Prescriptions: Cyclobenzaprine [Flexeril] 10 mg PO QHS PRN #10 tablet PRN Reason: Muscle Spasm Naproxen 500 mg PO Q12H PRN #12 tablet PRN Reason: Pain , Severe (7-10) Referrals: PRIMARY MD PEDRO [Primary Care Provider] - 3-5 Days MAYURI CROWE MD [Staff Physician] - 3-5 Days ABDIFATAH ANDERSON MD [Staff Physician] - 3-5 Days Forms: Work/School Release Form(ED) Time of Disposition: 10:46
== END 2021-02-26 10:46 | disposition home or self-care (01) ==
LOC: ED 07:09
DX: S39.012A Strain of muscle, fascia and tendon of lower back, initial encounter (principal); G43.909 Migraine, unspecified, not intractable, without status migrainosus; E78.5 Hyperlipidemia, unspecified; X50.9XXA Other and unspecified overexertion or strenuous movements or postures, initial encounter; Y93.89 Activity, other specified; Y92.89 Other specified places as the place of occurrence of the external cause; Y99.8 Other external cause status
CPT/HCPCS: 72100; 99283